=== PATIENT | male | born 1985 | race Caucasian/White ===

== ENCOUNTER 2024-06-27 10:07 | Emergency (ER) | payer OTHER ==
[~2024-06-27] VITALS: Ht 175.3 cm; Wt 90.9 kg
[2024-06-27 10:15] VITALS: BP 126/75; PULSE 83; RESP 18; TEMP 98.6; O2SAT 0
[2024-06-27] MEDS ORDERED: ESCI20TA37 PO (10:21)
[2024-06-27] MEDS ORDERED: CETI10TA58 PO (10:21)
[2024-06-27] MEDS ORDERED: BUSP10TA3 PO (10:21)
[2024-06-27] MEDS ORDERED: LORA1TAB25 PO (10:21)
[2024-06-27] MEDS ORDERED: BUSP10TA23 PO (10:21)
[2024-06-27] MEDS ORDERED: ALBU18HF12 IH (10:21)
[2024-06-27] MEDS ORDERED: ESCI-8 PO (10:21)
[2024-06-27 10:43] LABS: BASOPHILS % (AUTO) 0.7 % (0.0-2.0); EOSINOPHILS % (AUTO) 3.3 % (1.0-6.0); HEMATOCRIT 39.7 % (41-53); HEMOGLOBIN 13.1 g/dL (13.5-17.5); LYMPHOCYTES # (AUTO) 0.9 K/uL (1.0-4.8); LYMPHOCYTES % (AUTO) 20.1 % (22.0-44.0); MEAN CORPUSCULAR HEMOGLOBIN 28.1 pg (26.0-34.0); MEAN CORPUSCULAR HGB CONC 32.9 G/dL (31.0-37.0); MEAN CORPUSCULAR VOLUME 85 fL (80-100); MONOCYTES # (AUTO) 0.7 K/uL (0.1-1.0); MONOCYTES % (AUTO) 14.3 % (2.0-9.0); NEUTROPHILS # (AUTO) 2.8 K/uL (1.8-7.7); NEUTROPHILS % (AUTO) 61.6 % (40.0-70.0); PLATELET COUNT (AUTO) 229 K/uL (150-450); RED BLOOD CELL COUNT(AUTO) 4.65 MIL/uL (4.50-5.90); RED CELL DISTRIBUTION WIDTH 13.3 % (11.5-14.5); WHITE BLOOD COUNT (AUTO) 4.6 K/uL (4.5-11.0)
[2024-06-27 10:51] LABS: ANION GAP 9 mmol/L (8-16); CALCIUM, TOTAL 9.5 mg/dL (8.8-10.5); CARBON DIOXIDE 31 mmol/L (22-29); CHLORIDE 105 mmol/L (98-107); GLOMERULAR FILTR. RATE CALC > 60 mL/min (>60); GLUCOSE,RANDOM 95 mg/dL (70-110); LIPASE 11 U/L (16-77); POTASSIUM 4.6 mmol/L (3.5-5.1); SODIUM SERUM 145 mmol/L (136-145); UREA NITROGEN, BLOOD 8 mg/dL (7-18)
[2024-06-27 12:40] LABS: ALBUMIN 3.9 g/dL (3.4-5.0); BILIRUBIN,DIRECT 0.1 mg/dL (0.00-0.20); BILIRUBIN,TOTAL 0.4 mg/dL (0.1-1.0); TOTAL PROTEIN, SERUM 7.4 g/dL (6.4-8.2)
[2024-06-27] MEDS ORDERED: POLY17PO47 PO (12:46)
[2024-06-27] MEDS ORDERED: DOCU-119 PO (12:47)
== END 2024-06-27 13:09 | disposition home or self-care (01) ==
LOC: EMS 10:15
DX: K59.00 Constipation, unspecified (principal); R10.32 Left lower quadrant pain; Z71.6 Tobacco abuse counseling; Z88.8 Allergy status to other drugs, medicaments and biological substances; Z79.899 Other long term (current) drug therapy
CPT/HCPCS: 80048; 80076; 83690; 85025; 99283

== ENCOUNTER 2024-07-04 09:37 | Emergency (ER) | payer OTHER ==
[~2024-07-04] VITALS: Ht 175.3 cm; Wt 86.3 kg
[~2024-07-04 09:37] MED LIST: ALBU18HF12 IH; BUSP10TA23 PO; BUSP10TA3 PO; CETI10TA58 PO; DOCU-119 PO; ESCI-8 PO; ESCI20TA37 PO; LORA1TAB25 PO; POLY17PO47 PO
[2024-07-04 09:54] VITALS: TEMP 97.9
[2024-07-04] MEDS: DOXYCYCLINE HYCLATE 100 MG TABLET PO ONE (12:15)
[2024-07-04] MEDS: LIDOCAINE 1% 10 ML VIAL ID ONE (12:15)
[2024-07-04] MEDS ORDERED: DOXY-354 PO (12:35)
[2024-07-04 13:01] VITALS: BP 121/74; PULSE 85; RESP 17; O2SAT 96
== END 2024-07-04 13:09 | disposition home or self-care (01) ==
LOC: EMS 09:43
DX: L03.012 Cellulitis of left finger (principal); L02.512 Cutaneous abscess of left hand; Z88.8 Allergy status to other drugs, medicaments and biological substances; Z79.899 Other long term (current) drug therapy
CPT/HCPCS: 99284; J3490